=== PATIENT | male | born 1975 | race Caucasian/White ===

== ENCOUNTER 2017-03-03 05:51 | Emergency (ER) | payer SELFPAY ==
[~2017-03-03] VITALS: Ht 180.3 cm; Wt 82.6 kg
[2017-03-03 05:54] VITALS: BP 150/104
== END 2017-03-03 07:07 | disposition home or self-care (01) ==
LOC: ED 07:01
DX: G89.29 Other chronic pain (principal); M54.5 Low back pain; Z76.0 Encounter for issue of repeat prescription
CPT/HCPCS: 99283